=== PATIENT | female | born 1970 | race Two or more races ===

== ENCOUNTER 2020-05-09 15:42 | Emergency (ER) | payer OTHER ==
[~2020-05-09] VITALS: Ht 167.6 cm; Wt 52.2 kg
[2020-05-09] MEDS ORDERED: FLOVENT DISKUS50 MCG (16:45)
== END 2020-05-09 19:30 | disposition designated cancer center or children's hospital (05) ==
LOC: ER 15:42 → CPU-OBS 15:48 → ER 15:48
DX: I21.29 ST elevation (STEMI) myocardial infarction involving other sites (principal); R07.89 Other chest pain; K29.00 Acute gastritis without bleeding; R06.02 Shortness of breath; I08.1 Rheumatic disorders of both mitral and tricuspid valves; Z03.818 Encounter for observation for suspected exposure to other biological agents ruled out
CPT/HCPCS: G0378; G0379; 93005; 93306